=== PATIENT | male | born 1940 | race Caucasian/White ===

== ENCOUNTER → 2019-03-12 10:16 | Outpatient (BNVA) | payer MEDICARE, SELFPAY | PROVIDERS: Referring Provider Physician Assistant Medical; Visit Provider Nurse Practitioner Gerontology | DX: N40.1 Benign prostatic hyperplasia with lower urinary tract symptoms (principal); N13.8 Other obstructive and reflux uropathy; R33.8 Other retention of urine | CPT/HCPCS: 51798; 81003; 99204 ==

== ENCOUNTER → 2019-05-20 12:37 | Outpatient (BNVA) | payer MEDICARE, SELFPAY | PROVIDERS: Visit Provider Nurse Practitioner Gerontology | DX: N40.1 Benign prostatic hyperplasia with lower urinary tract symptoms (principal); R33.8 Other retention of urine | CPT/HCPCS: 99213 ==

== ENCOUNTER → 2019-11-19 10:12 | Outpatient (BNVA) | payer MEDICARE, SELFPAY | PROVIDERS: Visit Provider Nurse Practitioner Gerontology | DX: N40.1 Benign prostatic hyperplasia with lower urinary tract symptoms (principal); R33.8 Other retention of urine | CPT/HCPCS: 99213 ==

== ENCOUNTER → 2020-05-18 10:10 | Outpatient (BNVA) | payer MEDICARE, SELFPAY | PROVIDERS: Visit Provider Nurse Practitioner Gerontology | DX: N40.1 Benign prostatic hyperplasia with lower urinary tract symptoms (principal); R33.8 Other retention of urine | CPT/HCPCS: 99213 ==

== ENCOUNTER → 2023-05-29 10:48 | Outpatient (BNVA) | payer MEDICARE, SELFPAY | PROVIDERS: PCP Physician Assistant Medical; Referring Provider Podiatrist; Visit Provider Physical Therapy Assistant | DX: I87.2 Venous insufficiency (chronic) (peripheral) (principal); I73.9 Peripheral vascular disease, unspecified | CPT/HCPCS: 93922 ==

== ENCOUNTER → 2023-08-03 09:13 | Outpatient (BNVA) | payer MEDICARE, SELFPAY | PROVIDERS: PCP Physician Assistant Medical; Referring Provider Physician Assistant Medical; Visit Provider Podiatrist | DX: I70.91 Generalized atherosclerosis (principal); M79.675 Pain in left toe(s); M79.674 Pain in right toe(s); L60.3 Nail dystrophy; M20.41 Other hammer toe(s) (acquired), right foot; M20.42 Other hammer toe(s) (acquired), left foot; I87.2 Venous insufficiency (chronic) (peripheral) | CPT/HCPCS: 11721; 29580; 29850 ==

== ENCOUNTER → 2023-11-29 09:44 | Outpatient (BNVA) | payer MEDICARE, SELFPAY | PROVIDERS: PCP Physician Assistant Medical; Referring Provider Physician Assistant Medical; Visit Provider Podiatrist | DX: I70.91 Generalized atherosclerosis (principal); M79.674 Pain in right toe(s); M79.675 Pain in left toe(s); L60.3 Nail dystrophy; L84 Corns and callosities; M20.41 Other hammer toe(s) (acquired), right foot; M20.42 Other hammer toe(s) (acquired), left foot; I87.2 Venous insufficiency (chronic) (peripheral); R60.0 Localized edema | CPT/HCPCS: 11721 ==

== ENCOUNTER → 2024-04-03 10:13 | Outpatient (BNVA) | payer MEDICARE, SELFPAY | PROVIDERS: PCP Physician Assistant Medical; Referring Provider Physician Assistant Medical; Visit Provider Podiatrist | DX: I70.91 Generalized atherosclerosis (principal); M79.674 Pain in right toe(s); M79.675 Pain in left toe(s); L60.3 Nail dystrophy; M20.41 Other hammer toe(s) (acquired), right foot; M20.42 Other hammer toe(s) (acquired), left foot; I87.2 Venous insufficiency (chronic) (peripheral); B35.1 Tinea unguium; L84 Corns and callosities | CPT/HCPCS: 11056; 11721; 17110 ==

== ENCOUNTER → 2024-08-06 10:17 | Outpatient (BNVA) | payer MEDICARE, SELFPAY | PROVIDERS: PCP Physician Assistant Medical; Referring Provider Physician Assistant Medical; Visit Provider Podiatrist | DX: L60.3 Nail dystrophy (principal); I87.2 Venous insufficiency (chronic) (peripheral); I70.91 Generalized atherosclerosis; B35.1 Tinea unguium; L84 Corns and callosities; R09.89 Other specified symptoms and signs involving the circulatory and respiratory systems; R20.8 Other disturbances of skin sensation; L65.9 Nonscarring hair loss, unspecified; I83.93 Asymptomatic varicose veins of bilateral lower extremities; R60.0 Localized edema; L60.2 Onychogryphosis; L60.8 Other nail disorders | CPT/HCPCS: 11056; 11721 ==

== ENCOUNTER → 2024-12-02 10:14 | Outpatient (BNVA) | payer MEDICARE, SELFPAY | PROVIDERS: PCP Physician Assistant Medical; Referring Provider Physician Assistant Medical; Visit Provider Podiatrist | DX: L60.3 Nail dystrophy (principal); B35.1 Tinea unguium; L84 Corns and callosities; I70.91 Generalized atherosclerosis; I87.2 Venous insufficiency (chronic) (peripheral); I73.89 Other specified peripheral vascular diseases; R09.89 Other specified symptoms and signs involving the circulatory and respiratory systems; R20.8 Other disturbances of skin sensation; L65.9 Nonscarring hair loss, unspecified; I83.93 Asymptomatic varicose veins of bilateral lower extremities; R60.0 Localized edema; R23.8 Other skin changes; L60.2 Onychogryphosis; L60.8 Other nail disorders; M79.671 Pain in right foot; M79.672 Pain in left foot | CPT/HCPCS: 11056; 11721 ==

== ENCOUNTER 2025-01-16 07:55 | Outpatient (CLI) | payer MEDICARE, SELFPAY ==
--- NOTE | 2025-01-16 07:45 | RT.EKG_ITS ---
APPROVED REPORT Exam: Resting ECG Reason for Exam: PSVT Patient Location: O HR:57 bpm ECG Measurements Heart Rate 57 AXIS OR 188 P 42 QRSd 105 QRS -8 QT 444 T 24 QTc 433 Conclusion Sinus rhythm...normal P axis, V-rate 50- 99 Abnormal R-wave progression, early transition...QRS area>0 in V2 Otherwise normal ECG
== END 2025-01-16 07:56 | disposition home or self-care (01) ==
LOC: DI.CARD 08:01
PROVIDERS: PCP Physician Assistant Medical; Visit Provider Internal Medicine Cardiovascular Disease
DX: I47.10 Supraventricular tachycardia, unspecified (principal); R55 Syncope and collapse; I10 Essential (primary) hypertension
CPT/HCPCS: 93010

== ENCOUNTER → 2025-01-16 10:50 | Outpatient (BNVA) | payer MEDICARE, SELFPAY | PROVIDERS: PCP Physician Assistant Medical; Referring Provider Physician Assistant Medical; Visit Provider Internal Medicine Cardiovascular Disease | DX: R55 Syncope and collapse (principal); I47.10 Supraventricular tachycardia, unspecified; I10 Essential (primary) hypertension | CPT/HCPCS: 99214; 93005 ==

== ENCOUNTER 2025-01-21 08:50 | Outpatient (CLI) | payer MEDICARE, SELFPAY | END 2025-01-21 08:51 | disposition home or self-care (01) | PROVIDERS: PCP Physician Assistant Medical; Visit Provider Internal Medicine Cardiovascular Disease | DX: I47.10 Supraventricular tachycardia, unspecified (principal); R55 Syncope and collapse | CPT/HCPCS: 93270 ==

== ENCOUNTER 2025-02-20 10:14 | Outpatient (CLI) | payer MEDICARE, SELFPAY ==
--- NOTE | 2025-02-20 12:28 | W.CARDEVENT ---
Date of service: 02/20/25 Time of Service: 12:28 Cardiac Event Recorder Referring Provider:: Lani Pham Indications:: Syncope, SVT Cardiac Event Note: This is a cardiac event monitor. Patient was monitored for 30 days Predominant rhythm was sinus. Average heart rate overall was 61. Minimum was 53, maximum 111 There were rare isolated ventricular ectopic beats. There was 1 brief run of nonsustained ventricular tachycardia 4 beats in duration There was no atrial fibrillation, no SVT, no pauses greater than 3 seconds There were no apparent symptoms
== END 2025-02-20 10:15 | disposition home or self-care (01) ==
LOC: CARDOPNVT 10:14
PROVIDERS: PCP Physician Assistant Medical; Visit Provider Internal Medicine Cardiovascular Disease
DX: R55 Syncope and collapse (principal); I47.20 Ventricular tachycardia, unspecified
CPT/HCPCS: 93272

== ENCOUNTER → 2025-03-21 10:09 | Outpatient (BNVA) | payer MEDICARE, SELFPAY | PROVIDERS: PCP Physician Assistant Medical; Referring Provider Physician Assistant Medical; Visit Provider Internal Medicine Cardiovascular Disease | DX: I47.10 Supraventricular tachycardia, unspecified (principal); I10 Essential (primary) hypertension; R55 Syncope and collapse | CPT/HCPCS: 99213 ==

== ENCOUNTER → 2025-04-08 09:52 | Outpatient (BNVA) | payer MEDICARE, SELFPAY | PROVIDERS: PCP Physician Assistant Medical; Referring Provider Physician Assistant Medical; Visit Provider Podiatrist | DX: L60.3 Nail dystrophy (principal); B35.1 Tinea unguium; I70.91 Generalized atherosclerosis; I87.2 Venous insufficiency (chronic) (peripheral); L84 Corns and callosities; R09.89 Other specified symptoms and signs involving the circulatory and respiratory systems; R20.8 Other disturbances of skin sensation; L65.9 Nonscarring hair loss, unspecified; I83.93 Asymptomatic varicose veins of bilateral lower extremities; R60.0 Localized edema; M20.41 Other hammer toe(s) (acquired), right foot; M20.42 Other hammer toe(s) (acquired), left foot; R23.4 Changes in skin texture; L60.2 Onychogryphosis; L60.8 Other nail disorders | CPT/HCPCS: 11721 ==